=== PATIENT | male | born 1965 | race Caucasian/White ===

== ENCOUNTER 2017-12-19 21:58 | Emergency (ER) | payer BC ==
--- NOTE | 2017-12-19 22:32 | EDPHY ---
H & P Stated Complaint: carbon monoxide exposure, WEST Time Seen by Provider: 12/19/17 22:05 HPI/ROS: HPI CHIEF COMPLAINT: CO Exposure, WEST HISTORY OF PRESENT ILLNESS: This patient is a 52 y.o. Male, presents to the emergency room after she exposed to a running car his concern for carbon monoxide poisoning. Patient presents with her and daughter at bedside. The pulled the car into the garage and try depressed but to turn the car off and also immediately depressed in the garage door close button and then ran out of the garage to go on errand. The car was unfortunately left running for 4 hr in a closed garage. The family became aware of this when the daughter went outside to get something and open the garage door and it smelled bad. All 3 of them presents emergency room with headache and slightly fatigued. But otherwise they are acting appropriately. They are not confused. And her vital signs are stable. They think there exposed to running car in the close got for 4 hr. Denies any chest pain or shortness of breath or severe headache. They have a mild headache. No vomiting. Acting and answer questions appropriately Vital signs noted at triage to be hypoxic 89%. Past Medical History: Hypertension, hyperlipidemia Past Surgical History: No significant surgical history Social History: Denies drugs alcohol tobacco. Family History: Noncontributory ROS REVIEW OF SYSTEMS: A comprehensive 10 point review of systems is otherwise negative aside from elements mentioned in the history of present illness. Exam Constitutional appears well nontoxic triage nursing summary reviewed, vital signs reviewed, awake/alert. 89% O2 sat. Eyes normal conjunctivae and sclera, EOMI, PERRLA. HENT normal inspection, atraumatic, moist mucus membranes, no epistaxis, neck supple/ no meningismus, no raccoon eyes. Respiratory clear to auscultation bilaterally, normal breath sounds, no respiratory distress, no wheezing. Cardiovascular rate normal, regular rhythm, no murmur, no edema, distal pulses normal. Gastrointestinal soft, non-tender, no rebound, no guarding, normal bowel sounds, no distension, no pulsatile mass. Genitourinary no CVA tenderness. Musculoskeletal no midline vertebral tenderness, full range of motion, no calf swelling, no tenderness of extremities, no meningismus, good pulses, neurovascularly intact. Skin pink, warm, & dry, no rash, skin atraumatic. Neurologic not confused awake, alert and oriented x 3, AAOx3, moves all 4 extremities equally, motor intact, sensory intact, CN II-XII intact, normal cerebellar, normal vision, normal speech. Psychiatric normal mood/affect. Heme/Lymph/Immune no lymphadenopathy. Differential Diagnosis: Includes but not limited to in a particular order, CO exposure, dehydration, hypoxia Medical Decision Making: Plan for this patient will obtain carboxyhemoglobin level. Placed on oxygen monitor closely in the emergency room. They are not confused and they do not have profound abnormal vital signs. I think it is unlikely that they will have very high carbon monoxide levels. However will placed on oxygen for time being and re-evaluate. Re-evaluation: 233: Patient was placed on oxygen for an hour. Feels much better. Headache resolved. Vital signs are stable. Would like to be discharged. Carboxyhemoglobin level noted to be 0.9 Source: Patient - Personal History Current Tetanus/Diphtheria Vaccine: Unsure - Medical/Surgical History Hx Asthma: No Hx Chronic Respiratory Disease: No Hx Diabetes: No Hx Cardiac Disease: No Hx Renal Disease: No Hx Cirrhosis: No Hx Alcoholism: No Hx HIV/AIDS: No Hx Splenectomy or Spleen Trauma: No Other PMH: HTN, high cholesterol, - Social History Smoking Status: Former smoker Constitutional: Initial Vital Signs Temperature (C) 36.3 C 12/19/17 22:03 Heart Rate 66 12/19/17 22:03 Respiratory Rate 18 12/19/17 22:03 Blood Pressure 146/99 H 12/19/17 22:03 O2 Sat (%) 89 L 12/19/17 22:03 O2 Delivery Mode Room Air O2 (L/minute) 3 Allergies/Adverse Reactions: No Known Allergies Allergy (Unverified 08/31/10 22:34) Home Medications: Medication Instructions Recorded Protonix 08/31/10 Valtrex 08/31/10 Promethazine HCl [Phenergan] 25 mg PO Q6 PRN #5 tab 09/01/10 Amlodipine Besylate 12/19/17 Atorvastatin Calcium 12/19/17 Lisinopril 12/19/17 Medical Decision Making - Data Points Laboratory Results: 12/19/17 12/19/17 22:55 22:55 Puncture Site LEFT RADIAL Patient Temperature 37.0 DEGREES DEGREES pCO2 43 mmHg H mmHg (34-38) pO2 256 mmHg H mmHg (65-75) Total CO2 26 mEq/L mEq/L (23-27) ABG pH 7.38 (7.35-7.45) ABG HCO3 25 mEq/L mEq/L (22-26) ABG O2 Saturation 100 % H % (92-95) ABG Base Excess -0.2 mEq/L mEq/L (-2.5-2.5) Carboxyhemoglobin 0.9 % % (0-1.5) Total O2 Concentration 15.0 LITERS LITERS Departure - Departure Disposition: Home, Routine, Self-Care Clinical Impression: Carbon monoxide exposure Condition: Good Instructions: Carbon Monoxide Poisoning (ED) Additional Instructions: 1. Return emergency room if you have worsening symptoms questions or concerns. Referrals: Sean Blackman [Primary Care Provider] - As per Instructions
[2017-12-20 00:16] VITALS: BP 128/87; PULSE 87; RESP 16; TEMP 98.2; O2SAT 93
== END 2017-12-20 00:16 | disposition home or self-care (01) ==
DX: Z77.29 Contact with and (suspected) exposure to other hazardous substances (principal); I10 Essential (primary) hypertension; Z87.891 Personal history of nicotine dependence

== ENCOUNTER → 2018-01-21 | Outpatient (CLI) | payer BC | LOC: FIMAGING 14:34 | PROVIDERS: ATTEND Family Medicine | DX: J98.4 Other disorders of lung (principal); R68.82 Decreased libido ==

== ENCOUNTER 2018-08-10 00:20 | Inpatient (IN) | payer BC ==
[2018-08-10] MEDS ORDERED: NS 1,000 ML IV ONE ×2 (00:31→01:51)
[2018-08-10] MEDS ORDERED: HYDROmorphONE/DILAUDID 2 MG/ML INJ IVP ONE (00:31)
[2018-08-10] MEDS ORDERED: ONDANSETRON 4 MG/2 ML VIAL IVP ONE (00:31)
--- NOTE | 2018-08-10 00:32 | EDPHY ---
H & P Stated Complaint: ABD pain hernia sx 08/01, near syncope, nausea Time Seen by Provider: 08/10/18 00:31 HPI/ROS: HPI CHIEF COMPLAINT: Abdominal pain. Recent umbilical hernia repair. HISTORY OF PRESENT ILLNESS: This is a 52-year-old male, presents emergency room with worsening abdominal pain this evening. The patient states that he had umbilical hernia repair last Wednesday over week ago. States that it has been taking a while to recover from this intermittently having some pain. He reports that he had increasing abdominal pain in the lower abdomen over the last week. Especially when he sitting for prolonged period of time. He states that he typically feels better after 2 weeks up and he has been lying flat for prolonged period time when he is in a seated position he developed some lower abdominal pain around his incision sites. He does report that he has been having bowel movements. He has not had any vomiting. No fever. No chest pain or shortness of breath. It is noted tonight he went to work today and had a prolonged ride home getting stuck in traffic which caused him to be in a seated position for prolonged period time causing worsening lower abdominal pain. He decided go to bed this evening however woke up with increasing lower abdominal pain. Crampy in nature. Associated nausea but no vomiting. He went to go downstairs to the downstairs bed room and got lightheaded and nauseous felt like he was going to vomit. [place] a little dizzy. Due to the increasing abdominal pain this prompted him to come the emergency room. Pain is located throughout his lower abdomen 03/13. Dr. Jason performed his abdominal surgery Past Medical History: Denies significant medical history but new diagnosis of obstructive sleep apnea Past Surgical History: Umbilical hernia repair on Wednesday or over 8 days ago. Social History: Denies drugs alcohol tobacco. Family History: Noncontributory ROS REVIEW OF SYSTEMS: 10 Systems were reviewed and negative with the exception of the elements mentioned in the history of present illness. Exam Constitutional triage nursing summary reviewed, vital signs reviewed, awake/ alert. Eyes normal conjunctivae and sclera, EOMI, PERRLA. HENT normal inspection, atraumatic, moist mucus membranes, no epistaxis, neck supple/ no meningismus, no raccoon eyes. Respiratory clear to auscultation bilaterally, normal breath sounds, no respiratory distress, no wheezing. Cardiovascular rate normal, regular rhythm, no murmur, no edema, distal pulses normal. Gastrointestinal abdomen is distended, no bowel sounds, umbilical incision laparoscopic sites all appear clean dry and intact some ecchymosis around the umbilical site left lower quadrant abdominal site. No peritoneal signs but fullness on palpation. Tender palpation right lower quadrant. Genitourinary no CVA tenderness. Musculoskeletal no midline vertebral tenderness, full range of motion, no calf swelling, no tenderness of extremities, no meningismus, good pulses, neurovascularly intact. Skin buckle sites see above. Neurologic awake, alert and oriented x 3, AAOx3, moves all 4 extremities equally, motor intact, sensory intact, CN II-XII intact, normal cerebellar, normal vision, normal speech. Psychiatric normal mood/affect. Heme/Lymph/Immune no lymphadenopathy. Differential Diagnosis: Differential diagnosis includes but is not limited to and in no particular order: Intra-abdominal abscess, hematoma Bowel obstruction , appendicitis, gallbladder disease, diverticulitis, colitis, enteritis, perforated viscus, gastritis, GERD, esophagitis, urinary tract infection, pyelonephritis, kidney stones Medical Decision Making: Plan for this patient IV establishment IV fluid bolus , IV Dilaudid for pain control IV Zofran for nausea basic blood work, chest x- ray, CT scan abdomen pelvis with IV contrast. Re-evaluate. Re-evaluation: CT scan abdomen pelvis with IV contrast called to me by Dr. Rao, Shows SBO. Plan for consultation with surgery. 0149: Spoke with General surgery Dr. Jason. Agrees to admit the patient for possible SBO. Given that the patient is not vomiting he did not want an NG tube. It is noted the patient has been eating and drinking. He has been having a bowel movement. Given the CT scan shows SBO given that he has been eating and drinking having a bowel movement this may not be a complete SBO possibly ileus. The patient's abdominal exam is not peritoneal. The patient here in emergency room at 1:49 a.m. Is comfortable. Not vomiting. Plan for admission today for observation, bowel rest, IV fluids, nausea medicine and pain medicine. Dr. Jason to see and evaluate the patient this morning. 0207: I have updated the patient and at bedside they agree for hospital admission bowel rest. The patient feels comfortable this time. Pain well controlled. The patient is not vomiting. And passing flatus. Head CT scan does show SBO however patient is not vomiting. At this time no NG tube will be placed. Conservative measures. Admit and observe. Bowel rest and IV fluids. Dr. Jason agrees. Source: Patient - Personal History Current Tetanus/Diphtheria Vaccine: Yes Current Tetanus Diphtheria and Acellular Pertussis (TDAP): Yes - Medical/Surgical History Hx Asthma: No Hx Chronic Respiratory Disease: No Hx Diabetes: No Hx Cardiac Disease: No Hx Renal Disease: No Hx Cirrhosis: No Hx Alcoholism: No Hx HIV/AIDS: No Hx Splenectomy or Spleen Trauma: No Other PMH: HTN, high cholesterol, - Social History Smoking Status: Former smoker Constitutional: Initial Vital Signs Temperature (C) 37.2 C 08/10/18 00:24 Heart Rate 80 08/10/18 00:24 Respiratory Rate 18 08/10/18 00:24 Blood Pressure 107/79 08/10/18 00:24 O2 Sat (%) 88 L 08/10/18 00:24 O2 Delivery Mode Nasal Cannula O2 (L/minute) 2 Allergies/Adverse Reactions: No Known Allergies Allergy (Verified 08/10/18 10:29) Home Medications: Medication Instructions Recorded Acetaminophen [Tylenol 325mg (*)] 650 mg PO TID PRN 08/10/18 Atorvastatin Calcium [Lipitor 10 10 mg PO DAILY 08/10/18 mg (*)] Lisinopril [Zestril 10 mg (*)] 10 mg PO DAILY 08/10/18 Multivitamins [Multivitamin (*)] 1 each PO DAILY 08/10/18 [place]-3/Dha/Epa/Fish Oil [Fish Oil 1 each PO DAILY 08/10/18 1,000 mg Softgel] amLODIPine BESYLATE [Amlodipine 5 mg PO DAILY 08/10/18 Besylate] Medical Decision Making - Data Points Laboratory Results: Laboratory Results 08/10/18 00:38 08/10/18 00:38 Medications Given: Discontinued Medications Amlodipine Besylate (Norvasc) 5 mg PO DAILY SERAFIN Stop: 02/07/19 08:59 Last Admin: 08/11/18 08:46 Dose: 5 mg Atorvastatin Calcium (Lipitor) 10 mg PO DAILY SERAFIN Stop: 02/07/19 08:59 Last Admin: 08/11/18 08:46 Dose: 10 mg Hydromorphone HCl (Dilaudid) 0.5 mg IVP EDNOW ONE Stop: 08/10/18 00:32 Last Admin: 08/10/18 00:46 Dose: 0.5 mg Sodium Chloride (Ns) 1,000 mls @ 0 mls/hr IV EDNOW ONE; Wide Open PRN Reason: Protocol Stop: 08/10/18 00:32 Last Admin: 08/10/18 00:45 Dose: 1,000 mls Sodium Chloride (Ns) 1,000 mls @ 0 mls/hr IV ONCE ONE PRN Reason: Wide Open Stop: 08/10/18 01:52 Last Admin: 08/10/18 02:06 Dose: 1,000 mls Lactated Ringer's (Lr) 1,000 mls @ 150 mls/hr IV CONT SERAFIN Stop: 02/06/19 06:29 Last Admin: 08/10/18 13:12 Dose: 1,000 mls Ketorolac Tromethamine (Toradol) 15 mg IVP Q6HRS PRN PRN Reason: Pain, Breakthrough Stop: 08/15/18 04:08 Last Admin: 08/11/18 04:32 Dose: 15 mg Lisinopril (Zestril) 10 mg PO DAILY SERAFIN Stop: 02/07/19 08:59 Last Admin: 08/11/18 08:46 Dose: 10 mg Multivitamins (Tab-A-Leonardo) 1 each PO DAILY SERAFIN Stop: 02/07/19 08:59 Last Admin: 08/11/18 08:46 Dose: 1 each Ondansetron HCl (Zofran) 4 mg IVP EDNOW ONE Stop: 08/10/18 00:32 Last Admin: 08/10/18 00:46 Dose: 4 mg Ondansetron HCl (Zofran) 4 mg IVP Q4HRS PRN PRN Reason: Nausea/Vomiting, Can't Take PO Stop: 02/06/19 04:09 Last Admin: 08/10/18 16:43 Dose: 4 mg Point of Care Test Results: Chemistry 08/10/18 00:58 POC Troponin I 0.00 ng/mL ng/mL (0.00-0.08) Departure - Departure Disposition: [facility] Acute Clinical Impression: SBO (small bowel obstruction) Condition: Good
[2018-08-10 00:50] LABS: PLATELET COUNT 217 10^3/uL (150-400)
[2018-08-10] MEDS ORDERED: IOPAMIDOL (ISOVUE-300) 100 ML BTL ONE (01:07)
[2018-08-10] MEDS ORDERED: KETOROLAC 15 MG/1 ML SDV IVP PRN (04:09)
[2018-08-10] MEDS ORDERED: PROMETHAZINE HCL 25 MG/ML INJ IVP PRN (04:10)
[2018-08-10] MEDS ORDERED: ONDANSETRON 4 MG/2 ML VIAL IVP PRN (04:10)
[2018-08-10] MEDS ORDERED: HYDROCODONE/APAP 5/325 TAB PO PRN (04:11)
[2018-08-10] MEDS: LR 1,000 ML IV SCH ×2 (06:10→13:12)
--- NOTE | 2018-08-10 12:33 | PDGENHP ---
History and Physical - Chief Complaint Abdominal pain - History of Present Illness This is a 52-year-old gentleman well known to me from a previous umbilical hernia repair done on 08/01/2018. Laparoscopic ventral hernia repair was performed without difficulty the patient has not recovered fully from his surgery. He says in the morning he feels good but in the afternoon he has abdominal pain which is worsened with sitting or standing for prolonged periods. His otherwise been afebrile. He has had no emesis but the pain was excruciating last night and brought into the emergency room. Emergency room evaluation management found slight elevation in white blood cell count leukocytosis [address] scan showed a possible high-grade bowel obstruction by my read partial. He has been admitted made NPO of pain is currently left a or 12/11. History Information - Allergies/Home Medication List Allergies/Adverse Reactions: No Known Allergies Allergy (Verified 08/10/18 10:29) Home Medications: Acetaminophen [Tylenol 325mg (*)] 650 mg PO TID PRN 08/10/18 [Last Taken ] Atorvastatin Calcium [Lipitor 10 mg (*)] 10 mg PO DAILY 08/10/18 [Last Taken 03/21] Lisinopril [Zestril 10 mg (*)] 10 mg PO DAILY 08/10/18 [Last Taken 08/09/18] Multivitamins [Multivitamin (*)] 1 each PO DAILY 08/10/18 [Last Taken Unknown] [place]-3/Dha/Epa/Fish Oil [Fish Oil 1,000 mg Softgel] 1 each PO DAILY 08/10/18 [ Last Taken Unknown] amLODIPine BESYLATE [Amlodipine Besylate] 5 mg PO DAILY 08/10/18 [Last Taken 03/21] I have personally reviewed and updated: family history, medical history, surgical history - Past Medical History hypertension, hyperlipidemia Additional medical history: Nephrolithiasis, obstructive sleep apnea - Surgical History Reports: hernia repair (Laparoscopic 08/01/2018) Additional surgical history: Dilation of Schatzki ring, shoulder surgery, knee surgery biceps surgery - Family History Positive for: CAD, stroke - Social History Smoking Status: Former smoker Review of Systems Review of Systems: ROS: 2-9 pt reviewed & negative except for what was stated in HPI & below Gastrointestinal: Reports: abdominal pain, abdominal distention. Denies: vomitting Physical Exam Physical Exam: Alert oriented to person place and time. Sclerae anicteric Regular rate and rhythm Clear to auscultation Abdomen soft protuberant no peritoneal signs. Incisions clean dry and intact. Minimal bruising. Extremities without edema Normal skin turgor and tone No rashes Normal affect 2+ over 2+ radial femoral and dorsalis pedis pulses Nonfocal neurologic exam Temp Pulse Resp BP Pulse Ox 37.3 C 77 16 128/75 H 94 08/10/18 07:35 08/10/18 07:35 08/10/18 07:35 08/10/18 07:35 08/10/18 07:35 O2 (L/minute) 2 Lab Data & Imaging Review 08/10/18 00:38 08/10/18 00:38 WBC 10.58 10^3/uL (3.80-9.50) H 08/10/18 00:38 RBC 5.51 10^6/uL (4.40-6.38) 08/10/18 00:38 Hgb 16.1 g/dL (13.7-17.5) 08/10/18 00:38 Hct 46.9 % (40.0-51.0) 08/10/18 00:38 MCV 85.1 fL (81.5-99.8) 08/10/18 00:38 MCH 29.2 pg (27.9-34.1) 08/10/18 00:38 MCHC 34.3 g/dL (32.4-36.7) 08/10/18 00:38 RDW 12.7 % (11.5-15.2) 08/10/18 00:38 Plt Count 217 10^3/uL (150-400) 08/10/18 00:38 MPV 10.7 fL (8.7-11.7) 08/10/18 00:38 Neut % (Auto) 65.5 % (39.3-74.2) 08/10/18 00:38 Lymph % (Auto) 21.0 % (15.0-45.0) 08/10/18 00:38 [place] % (Auto) 8.8 % (4.5-13.0) 08/10/18 00:38 Eos % (Auto) 3.9 % (0.6-7.6) 08/10/18 00:38 Baso % (Auto) 0.6 % (0.3-1.7) 08/10/18 00:38 Nucleat RBC Rel Count 0.0 % (0.0-0.2) 08/10/18 00:38 Absolute Neuts (auto) 6.94 10^3/uL (1.70-6.50) H 08/10/18 00:38 Absolute Lymphs (auto) 2.22 10^3/uL (1.00-3.00) 08/10/18 00:38 Absolute Monos (auto) 0.93 10^3/uL (0.30-0.80) H 08/10/18 00:38 Absolute Eos (auto) 0.41 10^3/uL (0.03-0.40) H 08/10/18 00:38 Absolute Basos (auto) 0.06 10^3/uL (0.02-0.10) 08/10/18 00:38 Absolute Nucleated RBC 0.00 10^3/uL (0-0.01) 08/10/18 00:38 Immature Gran % 0.2 % (0.0-1.1) 08/10/18 00:38 Immature Gran # 0.02 10^3/uL (0.00-0.10) 08/10/18 00:38 VBG Lactic Acid 1.1 mmol/L (0.7-2.1) 08/10/18 00:38 Sodium 139 mEq/L (135-145) 08/10/18 00:38 Potassium 4.4 mEq/L (3.3-5.0) 08/10/18 00:38 Chloride 102 mEq/L (97-110) 08/10/18 00:38 Carbon Dioxide 28 mEq/l (22-31) 08/10/18 00:38 Anion Gap 9 mEq/L (6-14) 08/10/18 00:38 BUN 20 mg/dL (7-23) 08/10/18 00:38 Creatinine 1.0 mg/dL (0.7-1.3) 18 00:38 Estimated GFR > 60 08/10/18 00:38 Glucose 119 mg/dL (70-100) H 08/10/18 00:38 Calcium 9.4 mg/dL (8.5-10.4) 08/10/18 00:38 Total Bilirubin 0.6 mg/dL (0.1-1.4) 08/10/18 00:38 Conjugated Bilirubin 0.2 mg/dL (0.0-0.5) 08/10/18 00:38 Unconjugated Bilirubin 0.4 mg/dL (0.0-1.1) 08/10/18 00:38 AST 26 IU/L (17-59) 08/10/18 00:38 ALT 39 IU/L (21-72) 08/10/18 00:38 Alkaline Phosphatase 42 IU/L (38-126) 08/10/18 00:38 POC Troponin I 0.00 ng/mL (0.00-0.08) 08/10/18 00:58 Total Protein 6.7 g/dL (6.3-8.2) 08/10/18 00:38 Albumin 3.9 g/dL (3.5-5.0) 08/10/18 00:38 Lipase 58 IU/L (23-300) 08/10/18 00:38 Urine Color YELLOW 08/10/18 01:35 Urine Appearance CLEAR 08/10/18 01:35 Urine pH 6.0 (5.0-7.5) 08/10/18 01:35 Ur Specific [place] > 1.035 (1.002-1.030) H 08/10/18 01:35 Urine Protein NEGATIVE (NEGATIVE) 08/10/18 01:35 Urine Ketones NEGATIVE (NEGATIVE) 08/10/18 01:35 Urine Blood NEGATIVE (NEGATIVE) 08/10/18 01:35 Urine Nitrate NEGATIVE (NEGATIVE) 08/10/18 01:35 Urine Bilirubin NEGATIVE (NEGATIVE) 08/10/18 01:35 Urine Urobilinogen 2.0 EU (0.2-1.0) H 08/10/18 01:35 Ur Leukocyte Esterase NEGATIVE (NEGATIVE) 08/10/18 01:35 Urine Glucose NEGATIVE (NEGATIVE) 08/10/18 01:35 Imaging Review: Imaging Impressions Abdomen CT 08/10/18 00:46 Impression: 1. Mechanical small bowel obstruction, associated with ascites. The study was performed as an emergency on-call case and discussed by telephone with Dr. Yoshi Callaway at 1:40 AM hrs. The final interpretation is concordant with the original communication. Chest X-Ray 08/10/18 00:49 Impression: Mild hypoventilatory features, with right basilar diskoid subsegmental atelectasis. Assessment & Plan Assessment: SBO (small bowel obstruction) (Acute) Plan: Postoperative obstruction versus ileus. Small-bowel follow-through ordered. Follow expectantly. Options include bowel rest surgery in further imaging. This was discussed with the patient and his significant other. All questions were addressed. Further recommendations based on small-bowel follow-through
--- NOTE | 2018-08-10 13:06 | ASMTCMCOM ---
CM Note CM Note Notes: Chart reviewed for discharge planning purposes. 52 year old male admitted via ED with c/o abdominal pain. S/P hernia repair [address] imaging demonstrates SBO. No current needs identified. CM to follow for needs. Plan : Likely to discharge independently when medically stable for discharge. Date Signed: 08/10/2018 01:06 PM Electronically Signed By:Hailee Escamilla RN
--- NOTE | 2018-08-10 13:48 | PDMN ---
Medical Necessity Medical necessity: Pt meets inpt criteria per MD order and MCG M-210, Intestinal Obstruction, 2 days. 52 y/o w/recent umbilical hernia repair on 08/01 presented w/severe/worsening abdominal pain, admitted with acute SBO, abd CT shows mechanical SBO. Anticipate>2 MN for further workup, including sm bowel follow-through, and treatment.
[2018-08-11 08:28] VITALS: BP 129/88
[2018-08-11] MEDS ORDERED: ATORVASTATIN CALCIUM 10 MG TAB PO SCH (09:00)
[2018-08-11] MEDS ORDERED: LISINOPRIL 10 MG TAB PO SCH (09:00)
[2018-08-11] MEDS ORDERED: MULTIVITAMINS 1 EACH TAB PO SCH (09:00)
[2018-08-11] MEDS ORDERED: amLODIPine BESYLATE 5 MG TAB PO SCH (09:00)
== END 2018-08-11 12:40 | disposition home or self-care (01) | DRG 390 ==
LOC: F1N 02:47 → OBSVTOIN 13:38
PROVIDERS: ADMIT Surgery; ATTEND Surgery
DX: K56.609 Unspecified intestinal obstruction, unspecified as to partial versus complete obstruction (principal); E86.9 Volume depletion, unspecified; I10 Essential (primary) hypertension; E78.5 Hyperlipidemia, unspecified
CPT/HCPCS: 84484-PO; J1170; J1885; J2405; Q9967

== ENCOUNTER → 2018-11-10 | Outpatient (CLI) | payer BC | LOC: FCPNEURO 21:00 | PROVIDERS: ATTEND Psychiatry & Neurology Sleep Medicine | DX: G47.31 Primary central sleep apnea (principal); G47.34 Idiopathic sleep related nonobstructive alveolar hypoventilation ==